=== PATIENT | female | born 1990 | race Two or more races ===

== ENCOUNTER 2022-03-03 09:02 | Outpatient (CLI) | payer OTHER | END 2022-03-03 11:00 | disposition home or self-care (01) | LOC: PRENATAL 09:02 | PROVIDERS: ATTEND Obstetrics & Gynecology Maternal & Fetal Medicine | DX: O35.9XX0 Maternal care for (suspected) fetal abnormality and damage, unspecified, not applicable or unspecified (principal); O35.3XX0 Maternal care for (suspected) damage to fetus from viral disease in mother, not applicable or unspecified; Z3A.20 20 weeks gestation of pregnancy ==

== ENCOUNTER 2022-05-24 10:50 | Outpatient (CLI) | payer OTHER | END 2022-05-24 17:14 | disposition home or self-care (01) | LOC: PRENATAL 10:50 | PROVIDERS: ATTEND Obstetrics & Gynecology Maternal & Fetal Medicine | DX: O35.3XX0 Maternal care for (suspected) damage to fetus from viral disease in mother, not applicable or unspecified (principal); O35.9XX0 Maternal care for (suspected) fetal abnormality and damage, unspecified, not applicable or unspecified; Z3A.32 32 weeks gestation of pregnancy ==

== ENCOUNTER 2022-06-21 10:12 | Outpatient (CLI) | payer OTHER | END 2022-06-21 12:01 | disposition home or self-care (01) | LOC: PRENATAL 10:12 | PROVIDERS: ATTEND Obstetrics & Gynecology Maternal & Fetal Medicine | DX: O35.9XX0 Maternal care for (suspected) fetal abnormality and damage, unspecified, not applicable or unspecified (principal); O35.3XX0 Maternal care for (suspected) damage to fetus from viral disease in mother, not applicable or unspecified; Z3A.36 36 weeks gestation of pregnancy ==

== ENCOUNTER 2022-07-11 17:01 | Inpatient (IN) | payer OTHER ==
[~2022-07-11] VITALS: Ht 160 cm; Wt 91.6 kg
[2022-07-12] MEDS ORDERED: METOPROLOL SUCC25 MG (09:44)
[2022-07-12] MEDS ORDERED: IRON236 MG (09:45)
[2022-07-12] MEDS ORDERED: PRENATAL + DHA1 EAC1 (09:45)
== END 2022-07-15 13:26 | disposition home or self-care (01) | DRG 788 ==
LOC: LDR 17:01 → OB/GYN 17:01
PROVIDERS: Obstetrics & Gynecology; ADMIT Obstetrics & Gynecology; ATTEND Obstetrics & Gynecology
PROC: 4A1HXCZ Monitoring of Products of Conception, Cardiac Rate, External Approach (ICD-10-PCS; 2022-07-11)
PROC: 10D00Z1 Extraction of Products of Conception, Low, Open Approach (ICD-10-PCS; principal; 2022-07-12 01:45)
DX: O62.1 Secondary uterine inertia (principal); Z3A.39 39 weeks gestation of pregnancy; Z37.0 Single live birth; Z20.822 Contact with and (suspected) exposure to COVID-19